=== PATIENT | male | born 1965 | race Two or more races ===

== ENCOUNTER 2019-01-08 06:30 | Day surgery (SDC) | payer OTHER ==
[~2019-01-08 06:30] MED LIST: METFORMIN HCL500 M1 PO
[2019-01-08] MEDS ORDERED: PERCOCET 5-3251 EACH PO (09:36)
== END 2019-01-08 13:20 | disposition home or self-care (01) ==
LOC: CIR.AMB 06:30
DX: M23.322 Other meniscus derangements, posterior horn of medial meniscus, left knee (principal); M23.352 Other meniscus derangements, posterior horn of lateral meniscus, left knee; M94.262 Chondromalacia, left knee; M65.862 Other synovitis and tenosynovitis, left lower leg